=== PATIENT | male | born 1935 | race Caucasian/White ===

== ENCOUNTER 2020-11-17 06:50 | Day surgery (SDC) | payer MEDICARE, OTHER ==
[~2020-11-17] VITALS: Ht 182.9 cm; Wt 80.0 kg
[~2020-11-17 06:50] MED LIST: ALTOPREV40 MG PO; ASPIRIN81 MG PO; BENAZEPRIL HCL10 MG PO; DAILY MULTIVIT1 EAC3 PO; FISH OIL 1,0001 EAC2 NG; ISOSORBIDE MONO30 MG PO; METOPROLOL TART25 MG PO
--- NOTE | 2020-11-17 10:01 | NUR ---
11/17/20 1001 Story, Tiffany Taylor PATIENT ARRIVED VERY DROWSY, AWAKENS TO GENTLE SHAKE. DRESSING C/D/I. RESPIRATIONS BREATHING UNLABORED.
--- NOTE | 2020-11-17 10:30 | NUR ---
PATIENT BACK TO ROOM FROM PACU, BEDSIDE REPORT FROM IVONNE STOVER AND LAST RN. DRESSING TO RIGHT INGUINIEAL C/D/I WITH GAUZE AND TAPE. PATIENT AWAKE TOLERATING FLUIDS. REPORTS NO PAIN OR NAUSEA. VSS. CALL LIGHT WITHIN REACH.
--- NOTE | 2020-11-17 11:42 | NUR ---
1140 PT REPORTS PAIN IS 1/10 DOWN FROM 3-4/10 BEFORE PAIN MED HE WAS VERY UNCOMFORTABLE. PT AWAKE AND ALERT WATCHING TV WITH SON AT BEDSIDE, DENIES NAUSEA, REPORTS HE IS VERY HUNGRY, LUNCH WAS ORDERED FOR HIM.
--- NOTE | 2020-11-17 11:57 | NUR ---
PT EATING LUNCH, DENIES PAIN OR NAUSEA,
--- NOTE | 2020-11-17 12:42 | NUR ---
1242 PT UP TO BATHROOM AMBULATES WITH MIN ASSIST.
--- NOTE | 2020-11-17 13:10 | NUR ---
1255 PT WAS ABLE TO VOID 100ML OF CLEAR YELLOW URINE
--- NOTE | 2020-11-17 13:12 | NUR ---
1300 DISCHARGE INSTRUCTIONS GIVEN TO PT AND SON BOTH VOICED UNDERSTANDING.
--- NOTE | 2020-11-20 14:22 | OR ---
[facility] [address], [place] [address] Signed DATE OF OPERATION: 11/17/2020 SURGEON: Marcelo Leroy MD PREOPERATIVE DIAGNOSIS: Incarcerated right moderate-sized inguinal hernia. POSTOPERATIVE DIAGNOSIS: Moderate-sized reducible right indirect inguinal hernia. PROCEDURES: Right Niall onlay mesh inguinal herniorrhaphy with onlay mesh. ESTIMATED BLOOD LOSS: None. INDICATIONS: Tom is an 85-year-old gentleman who remains quite active in good physical shape. In fact, he was lifting a heavy plate in his garage that attaches to his trailer and he felt pain and swelling in the right groin. This occurred back in mid September 2020. He had been to the urgent care clinic over in [place], [place]. He was sent for an ultrasound and it confirmed his inguinal hernia. He has been wearing a belt to help keep the hernia in place. He said it has gotten to the point now he cannot push it back inside. He said it is causing a lot of pain. He was therefore referred to my office to have it repaired. In the office one could easily see and feel the incarcerated right inguinal hernia. I gave him a booklet in the office on hernias and we went through it page by page. He understands the nature of an inguinal hernia along with the difference between a primary suture repair and a mesh repair. We reviewed the expected intraop and postop course. He understands there is risk including, but not limited to bleeding, infection, scarring, change in contour of the skin, damage to the nerves, ischemic orchitis, recurrent hernias and chronic pain. He had expressed understanding and wished to proceed. PROCEDURE NOTE: I met with Tom in our preop area. On this occasion, the hernia was reduced. We both agreed on the right side and we marked it appropriately. After this, Tom was taken into our operating room and placed in the supine position under general LMA anesthesia. He was given a nerve block prior to the case by our nurse chain link fence installer. He was given preoperative antibiotics along with subcutaneous heparin. SCDs were utilized. He was then prepped and draped in the usual sterile fashion. We made our standard oblique Electronically Signed By: MARCELO LEROY MD 11/17/20 1350 Electronically Signed By: MARCELO LEROY MD 11/20/20 1603 PATIENT NAME: TOM COCHRAN OPERATIVE REPORT DATE OF : 39 REPORT #: [id number] PHYSICIAN: MARCELO LEROY MD PCP: NO PRIMARY CARE PHYSICIAN REPORT IS CONFIDENTIAL AND NOT TO BE RELEASED WITHOUT AUTHORIZATION [facility] [address], [place] [address] Signed incision in the groin and carried it down through the tissue bluntly and with the cautery. The external oblique was opened along its length and developed medially and laterally. The cord structures were elevated at the level of pubic tubercle. The ilioinguinal and iliohypogastric nerves were visualized and protected throughout the case. We dissected out the cord structures at the level of deep ring and he had a moderate-sized indirect inguinal hernia sac. The sac was suture ligated, amputated at the level of deep ring. He also had a moderate-sized cord lipoma and it was carefully from the cord structures and it was also suture ligated and amputated at the level of deep ring. We then cut a piece of flat Prolene mesh to fit his groin and a slit was made in the mesh to accommodate the cord structures at the level of deep ring. It was held in place medially and laterally with running #1 Prolene suture. This gave excellent coverage of the direct and indirect spaces. After this, local anesthetic was injected into the operative field. The wound was irrigated and suctioned out until clear. We closed the external oblique over the repair with a running 2-0 PDS suture. Ayse's fascia was also reapproximated with a running 3-0 Monocryl suture. The dermis was reapproximated with interrupted 3-0 Monocryl and subcuticular sutures. Skin edges were reapproximated with a running fast absorbing 5-0 plain gut suture. Dry gauze and tape were applied. Tom was awakened from his anesthesia, extubated in the OR, and taken to the recovery room in stable condition. Mareclo Leroy MD ALB/MODL /[id number] cc: Marcelo Leroy MD Copies: MARCELO LEROY MD ~ Electronically Signed By: MARCELO LEROY MD 11/17/20 1350 Electronically Signed By: MARCELO LEROY MD 11/20/20 1609 PATIENT NAME: TOM COCHRAN OPERATIVE REPORT DATE OF : 39 REPORT #: [id number] PHYSICIAN: MARCELO LEROY MD PCP: NO PRIMARY CARE PHYSICIAN REPORT IS CONFIDENTIAL AND NOT TO BE RELEASED WITHOUT AUTHORIZATION
== END 2020-11-17 13:00 | disposition home or self-care (01) ==
LOC: DS 06:50
PROVIDERS: ATTEND Colon & Rectal Surgery
PROC: 0YU50JZ Supplement Right Inguinal Region with Synthetic Substitute, Open Approach (ICD-10-PCS; principal; 2020-11-17 08:30)
DX: K40.90 Unilateral inguinal hernia, without obstruction or gangrene, not specified as recurrent (principal); G89.18 Other acute postprocedural pain; I11.0 Hypertensive heart disease with heart failure; I50.9 Heart failure, unspecified; I65.29 Occlusion and stenosis of unspecified carotid artery; I35.0 Nonrheumatic aortic (valve) stenosis; E78.5 Hyperlipidemia, unspecified; I42.9 Cardiomyopathy, unspecified; M19.90 Unspecified osteoarthritis, unspecified site; Z87.81 Personal history of (healed) traumatic fracture; Z79.82 Long term (current) use of aspirin; Z85.828 Personal history of other malignant neoplasm of skin; Z86.16 Personal history of COVID-19
CPT/HCPCS: 00830; 64447; 64450; 76942; C1781; J0131; J0690; J1100; J1170; J1644; J1885; J2001; J2704; J7121